=== PATIENT | female | born 1940 | race Two or more races ===

== ENCOUNTER 2024-03-05 06:58 | Day surgery (SDC) | payer MEDICARE ==
[~2024-03-05] VITALS: Ht 157.5 cm; Wt 55.4 kg
[2024-03-05] MEDS ORDERED: FERR325T29 (07:25)
[2024-03-05] MEDS ORDERED: AMLO2.5T5 PO (07:25)
[2024-03-05] MEDS ORDERED: MAGN400T56 PO (07:25)
[2024-03-05] MEDS ORDERED: TELM20TA8 (07:25)
[2024-03-05] MEDS ORDERED: [UNRECOGNIZED DRUG - OTHER] PO (07:27)
[2024-03-05] MEDS ORDERED: VIT B12 INJ (07:28)
[2024-03-05 07:29] VITALS: BP 138/85; PULSE 98; RESP 19
[2024-03-05] MEDS ORDERED: LUTE1CAP PO (07:29)
[2024-03-05] MEDS ORDERED: fentaNYL/PF 50MCG/1 ML 2ML syringe ONE (08:40)
[2024-03-05] MEDS ORDERED: LIDOcaine 2% Viscous 15ml cup ONE (08:40)
[2024-03-05] MEDS ORDERED: MIDAZolam 1 MG/ML 5ML VIAL ONE (08:41)
[2024-03-05] MEDS ORDERED: diphenhydrAMINE 50 mg/ml inj ONE (08:47)
[2024-03-05 09:25] VITALS: BP 137/71; PULSE 78; RESP 16; O2SAT 100
[2024-03-05 09:35] VITALS: BP 126/70; PULSE 78; RESP 16; O2SAT 100
[2024-03-05 09:45] VITALS: BP 122/76; PULSE 73; RESP 16; O2SAT 100
[2024-03-05 10:00] VITALS: BP 132/80; PULSE 76; RESP 16; O2SAT 100
== END 2024-03-05 10:10 | disposition home or self-care (01) ==
LOC: GI LAB 06:58
PROVIDERS: ATTEND Internal Medicine Gastroenterology
DX: D50.0 Iron deficiency anemia secondary to blood loss (chronic) (principal); K57.30 Diverticulosis of large intestine without perforation or abscess without bleeding
CPT/HCPCS: 43239; 45378; A4620; G0500; J1200; J2250; J3010; J7030; Z7512; 88305; 99152